=== PATIENT | male | born 1985 | race Caucasian/White ===

== ENCOUNTER 2017-11-17 10:40 | Emergency (ER) | payer SELFPAY ==
--- NOTE | 2017-11-17 11:49 | EDPHYS ---
Physician Documentation [facility] Name: Rob Kolb Age: 32 yrs Sex: Male : 1985 Arrival Date: 11/17/2017 Time: 10:41 Bed 8 Private MD: ED Physician Schuyler Bruce HPI: 11/17 11:44 This 32 yrs old Male presents to ER via Ambulatory with complaints of Low rn Back Pain. 11:44 The patient presents with pain that is chronic. The symptoms are located in the low rn back. The pain radiates to the right leg. Onset: The symptoms/episode began/occurred at an unknown time. Severity of symptoms: At their worst the symptoms were mild, in the emergency department the symptoms are unchanged. The patient has experienced similar episodes in the past, chronically. Reports degenerative disc disease, has had problems with radiculopathy in past, also shooting down right leg today, no new trauma, no bowel/bladder problems, no weakness. Here for pain medication.. Historical: - Allergies: 11:26 No Known Allergies; aj - Home Meds: 11:26 None [Active]; aj - PMHx: 11:26 Chronic pain; Back pain; Degenerative disc disease; aj - PSHx: 11:26 None; aj - Immunization history:: Adult Immunizations up to date. - Social history:: Smoking status: Patient uses tobacco products, smokes one pack cigarettes per day. - Ebola Screening: : Patient negative for fever greater than or equal to 101.5 degrees Fahrenheit, and additional compatible Ebola Virus Disease symptoms Patient denies exposure to infectious person Patient denies travel to an Ebola-affected area in the 21 days before illness onset No symptoms or risks identified at this time. - Family history:: not pertinent. - Hospitalizations: : No recent hospitalization is reported. ROS: 11:44 Constitutional: Negative for fever, chills, and weight loss, Eyes: Negative for injury, rn pain, redness, and discharge, Neck: Negative for injury, pain, and swelling, Cardiovascular: Negative for chest pain, palpitations, and edema, Respiratory: Negative for shortness of breath, cough, wheezing, and pleuritic chest pain, Abdomen/GI: Negative for abdominal pain, nausea, vomiting, diarrhea, and constipation, Back: + pain, no injury MS/Extremity: Negative for injury and deformity, Neuro: Negative for headache, weakness, and seizure. Exam: 11:44 Constitutional: This is a well developed, well nourished patient who is awake, alert, rn and in no acute distress. Back: No spinal tenderness. No costovertebral tenderness. Full range of motion. Skin: Warm, dry with normal turgor. Normal color with no rashes, no lesions, and no evidence of cellulitis. MS/ Extremity: Pulses equal, no cyanosis. Neurovascular intact. Full, normal range of motion. Equal circumference. Neuro: Awake and alert, GCS 15, oriented to person, place, time, and situation. Cranial nerves II-XII grossly intact. Motor strength 5/5 in all extremities. Sensory grossly intact. Cerebellar exam normal. Normal gait. Vital Signs: 11:26 BP 139 / 98; Pulse 69; Resp 19; Temp 98.3; Pulse Ox 96% on R/A; Weight 88.45 kg; Height aj 5 ft. 9 in. (175.26 cm); 11:26 Body Mass Index 28.80 (88.45 kg, 175.26 cm) aj MDM: 11:40 Patient medically screened. rn 11:44 Differential diagnosis: arthritis, strain, Herniated disc radiculopathy. Data reviewed: rn vital signs, nurses notes, and as a result, I will discharge patient. Counseling: I had a detailed discussion with the patient and/or guardian regarding: the historical points, exam findings, and any diagnostic results supporting the discharge/admit diagnosis, the need for outpatient follow up, to return to the emergency department if symptoms worsen or persist or if there are any questions or concerns that arise at home. Special discussion: I discussed with the patient/guardian in detail that at this point there is no indication for admission to the hospital. It is understood, however, that if the symptoms persist or worsen the patient needs to return immediately for re-evaluation. Based on the history and exam findings, there is no indication for further emergent testing or inpatient evaluation. I discussed with the patient/guardian the need to see the supervisor paint department for further evaluation of the symptoms. Administered Medications: No medications were administered Disposition: 11/17/17 11:47 Discharged to Home. Impression: Radiculopathy, lumbar region. - Condition is Stable. - Discharge Instructions: Lumbosacral Radiculopathy, Back Exercises. - Prescriptions for Tylenol- Codeine #3 300-30 mg Oral Tablet - take 1 tablet by ORAL route every 6 hours As needed; 15 tablet. Medrol ([place]) 4 mg Oral Tablets, Dose Pack - take 1 tablet by ORAL route as directed - follow package instructions; 1 packet. - Medication Reconciliation Form, Thank You Letter, Antibiotic Education, Prescription Opioid Use form. - Follow up: Private Physician; When: As needed; Reason: Recheck today's complaints, Re-evaluation by your physician. - Problem is chronic. - Symptoms are unchanged. Signatures: Alayna Sheikh RN RN Schuyler Lopez MD MD rn Calderon, Audri, RN RN aa5 Corrections: (The following items were deleted from the chart) 11:57 11:47 11/17/2017 11:47 Discharged to Home. Impression: Radiculopathy, lumbar region. aa5 Condition is Stable. Forms are Medication Reconciliation Form, Thank You Letter, Antibiotic Education, Prescription Opioid Use. Follow up: Private Physician; When: As needed; Reason: Recheck today's complaints, Re-evaluation by your physician. Problem is chronic. Symptoms are unchanged. rn
--- NOTE | 2017-11-17 11:49 | ER ---
Nurse's Notes [facility] Name: Rob Kolb Age: 32 yrs Sex: Male : 1985 Arrival Date: 11/17/2017 Time: 10:41 Bed 8 Private MD: Diagnosis: Radiculopathy, lumbar region Presentation: 11/17 11:23 Presenting complaint: Patient states: Low back pain that shoots down right leg for 3 aj days. Also reports numbness to right leg. Ambulated with limp to triage. Patient drove himself. Transition of care: patient was not received from another setting of care. Onset of symptoms was November 14, 2017. Risk Assessment: Do you want to hurt yourself or someone else? Patient reports no desire to harm self or others. Initial Sepsis Screen: Does the patient meet any 2 criteria? No. Patient's initial sepsis screen is negative. Does the patient have a suspected source of infection? No. Patient's initial sepsis screen is negative. Care prior to arrival: Medication(s) given: Motrin, Reports taking Motrin 1200 mg at 0400 and again at 0800. Educated about risks of taking high doses of motrin. 11:23 Method Of Arrival: Ambulatory aj 11:23 Acuity: RYAN 4 aj Triage Assessment: 11:26 General: Appears in no apparent distress. comfortable, Behavior is calm, cooperative, aj appropriate for age. Pain: Complains of pain in low back area, right lower back, right gluteus kimber and right gluteal fold Pain currently is 10 out of 10 on a pain scale. Neuro: Level of Consciousness is awake, alert, obeys commands, Oriented to person, place, time, situation, Appropriate for age. Respiratory: Airway is patent Respiratory effort is even, unlabored, Respiratory pattern is regular, symmetrical. Derm: Skin is intact, is healthy with good turgor, Skin is pink, warm \T\ dry. normal. Musculoskeletal: Circulation, motion, and sensation intact. Range of motion: intact in all extremities, Reports numbness in right gluteal fold, right hamstring, posterior aspect of right knee and right calf pain in low back area, coccyx, right lower back, right gluteus kimber and right gluteal fold. Historical: - Allergies: 11:26 No Known Allergies; aj - Home Meds: 11:26 None [Active]; aj - PMHx: 11:26 Chronic pain; Back pain; Degenerative disc disease; aj - PSHx: 11:26 None; aj - Immunization history:: Adult Immunizations up to date. - Social history:: Smoking status: Patient uses tobacco products, smokes one pack cigarettes per day. - Ebola Screening: : Patient negative for fever greater than or equal to 101.5 degrees Fahrenheit, and additional compatible Ebola Virus Disease symptoms Patient denies exposure to infectious person Patient denies travel to an Ebola-affected area in the 21 days before illness onset No symptoms or risks identified at this time. - Family history:: not pertinent. - Hospitalizations: : No recent hospitalization is reported. Screenin:35 Abuse screen: Denies threats or abuse. Nutritional screening: No deficits noted. aa5 Tuberculosis screening: No symptoms or risk factors identified. Fall Risk None identified. Assessment: 11:35 General: Appears uncomfortable, Behavior is calm, cooperative. Pain: Complains of pain aa5 in lumbar area Pain radiates to right leg Pain currently is 9 out of 10 on a pain scale. Quality of pain is described as sharp, numb, Pain began 2-3 days ago. Is continuous, Alleviated by nothing. Aggravated by increased activity. Neuro: Level of Consciousness is awake, alert, obeys commands, Oriented to person, place, time, situation. Cardiovascular: Heart tones S1 S2 present Rhythm is regular. Respiratory: Airway is patent Respiratory effort is even, unlabored, Respiratory pattern is regular, symmetrical. GI: No signs and/or symptoms were reported involving the gastrointestinal system. : No signs and/or symptoms were reported regarding the genitourinary system. EENT: No signs and/or symptoms were reported regarding the EENT system. Derm: Skin is pink, warm \T\ dry. Musculoskeletal: Range of motion: intact in all extremities. Vital Signs: 11:26 BP 139 / 98; Pulse 69; Resp 19; Temp 98.3; Pulse Ox 96% on R/A; Weight 88.45 kg; Height aj 5 ft. 9 in. (175.26 cm); 11:26 Body Mass Index 28.80 (88.45 kg, 175.26 cm) aj ED Course: 10:41 Patient arrived in ED. rg4 11:25 Triage completed. aj 11:26 Arm band placed on left wrist. Patient placed in an exam room, on a stretcher. aj 11:31 Rhea Mendieta, RN is Primary Nurse. aa5 11:35 Patient has correct armband on for positive identification. Bed in low position. Side aa5 rails up X 1. 11:40 Schuyler Bruce MD is Attending Physician. rn Administered Medications: No medications were administered Outcome: 11:47 Discharge ordered by . rn 11:57 Patient left the ED. aa5 Signatures: Alayna Sheikh RN Schuyler Choe MD MD rn Calderon, Audri, JAREK RN Acacia Chavira 4
== END 2017-11-17 11:57 | disposition home or self-care (01) ==
LOC: ER 10:40
DX: M54.16 Radiculopathy, lumbar region (principal)
CPT/HCPCS: 99281